=== PATIENT | male | born 1945 | race Caucasian/White ===

== ENCOUNTER → 2025-06-23 13:02 | Outpatient (CLI) | payer MEDICARE, OTHER, SELFPAY ==
--- NOTE | 2025-07-14 14:00 | DI.NM.S_ITS ---
DATE OF SERVICE: 06/23/2025 EXERCISE STRESS TEST INDICATION: Chest pain. CARDIAC STRESS: Patient underwent exercise stress test under the supervision of an attending staff. He walked on Odell protocol for 6 minutes and 23 seconds, achieved 7.3 METS of workload, maximum heart rate 139 which was 98% of target heart rate, MARCUS -17%. Resting blood pressure 144/80 and peak blood pressure 190/90 mmHg. Baseline rhythm, sinus with mild sinus bradycardia. During stress, no convincing ischemic changes seen. No significant arrhythmias. No chest pain. Had some shortness of breath. Normal recovery. CONCLUSION: Exercise stress test negative for inducible ischemia. Fair exercise tolerance. Normal hemodynamic response. No significant arrhythmias. No anginal symptoms. Normal recovery. Overall, low-risk exercise stress test. Rodolfo Mcknight - REJI/dayna/SUNDAY doc#: [id number]/job#: [id number] dd: 06/23/2025 17:41:00 dt: 06/23/2025 17:52:00 DICTATING /COPIES TO: Nick Barron MD COPIES MNE: CELIA;
== END ==
LOC: NUCM 13:07
PROVIDERS: Family Provider Specialist; PCP Student in an Organized Health Care Education/Training Program; Referring Provider Student in an Organized Health Care Education/Training Program; Visit Provider Student in an Organized Health Care Education/Training Program
DX: R07.89 Other chest pain (principal)
CPT/HCPCS: 93017